=== PATIENT | male | born 1955 | race Caucasian/White ===

== ENCOUNTER 2020-07-23 16:08 | Emergency (ER) | payer OTHER ==
[~2020-07-23 16:08] MED LIST: ALDACTONE50 MG PO; ANDRODERM1 EAC1 XX; BACTRIM DS TAB1 EACH PO; CIALIS5 MG PO; HYDROCODON-ACE1 EAC2 PO; KEFLEX250 MG PO; LANTUS **100 UNITS/ SC; NEURONTIN400 MG PO; NORVASC5 MG PO; NOVOLOG VI100 UNIT/1 SC; PENTOXIFYLLINE400 MG PO
[2020-07-23 18:23] LABS: BASOPHIL 0.3 % (0-2); EOSINOPHIL 1.5 % (0-5); HCT 34.9 % (42.0-52.0); HGB 11.7 g/dl (13.2-18.0); LYMPHOCYTE 11.1 % (15-48); MCH 31.5 pg (25.0-31.0); MCHC 33.5 g/dL (32.0-36.0); MCV 94.1 fL (78.0-100.0); MONOCYTE 10.3 % (0-12); MPV 8.4 fL (6.0-9.5); NEUTROPHIL 76.5 % (41-80); NRBC 0; PLT 163 K/uL (150-400); RBC 3.71 M/uL (4.70-6.00); RDW 13.2 % (11.5-14.0); WBC 9.8 K/uL (4.0-10.5)
[2020-07-23 18:36] LABS: BILIRUBIN 1+ mg/dL (NEGATIVE); BLOOD 1+ Ery/uL (NEGATIVE); CLARITY CLEAR (CLEAR); COLOR ORANGE (YELLOW); GLUCOSE (U) TRACE mg/dL (NORMAL); LEUKOCYTES 1+ Leu/uL (NEGATIVE); NITRITE POSITIVE (NEGATIVE); PROTEIN 3+ mg/dL (NEGATIVE); UROBILINOGEN >=8.0 mg/dL (0.2-1.0)
[2020-07-23 18:37] LABS: ALBUMIN 3.8 g/dL (3.4-5.0); BILIRUBIN - TOTAL 0.6 mg/dL (0.2-1.0); BUN/CREAT RATIO (CALC) 21.9 RATIO; CREATININE 1.55 mg/dL (0.67-1.17); GLOBULIN (CALCULATION) 3.6 g/dL; POTASSIUM 5.6 mmol/L (3.5-5.1); TOTAL PROTEIN 7.4 g/dL (6.4-8.2)
[2020-07-23 18:51] LABS: BACTERIA 3+; URINARY WBC TNTC
[2020-07-23] MEDS ORDERED: CEPHALEXIN500 M1 PO (23:18)
== END 2020-07-23 23:43 | disposition home or self-care (01) ==
LOC: FER 16:08
PROVIDERS: Emergency Medicine
DX: N39.0 Urinary tract infection, site not specified (principal); R31.9 Hematuria, unspecified; I10 Essential (primary) hypertension; E10.40 Type 1 diabetes mellitus with diabetic neuropathy, unspecified; Z88.5 Allergy status to narcotic agent
CPT/HCPCS: 36415; 80053; 81001; 82009; 82150; 82553; 83690; 84145; 85025; 87076; 87088; 87186; J2405; J2543; J3010